=== PATIENT | male | born 1985 | race American Indian/Alaskan Native ===

== ENCOUNTER 2016-04-29 16:42 | Inpatient (IN) | payer OTHER ==
--- NOTE | 2016-04-29 18:12 | Emergency Department Report ---
Chief Complaint: Pain General Stated Complaint: GROIN PAIN Time Seen by Provider: 04/29/16 18:11 - HPI History of Present Illness: This is a 30-year-old obese patient who is here reported bilateral groin pain. Patient said it started early this morning. He said he did a lot of walking and exercising yesterday and he thinks that maybe was coming from. Denies any painful urination. Denies any testicular pain. Denies any abdominal pain. Denies any nausea vomiting or fever or chills. He said he is worried because he has a history of pain in and is hip. Denies any history of hernia. - ROS Review of Systems: All systems are negative unless stated in HPI above. - Exam Vital Signs: Vital Signs 04/29/16 17:01 Temperature 98.4 F Pulse Rate 60 Respiratory 20 Rate Blood Pressure 142/104 O2 Sat by Pulse 99 Oximetry Physical Exam: General: This is a 30-year-old obese male. He is in no acute distress. Abdomen/pelvis: Tender to palpate bilateral groin. No obvious mass seen or felt. No erythema. Abdomen nontender to palpate in all quadrants without any CVA tenderness. Normal bowel sounds. Male : Scrotum nontender to palpate, no erythema or swelling noted. MSE screening note: Focused history and physical exam performed. Due to findings the following was ordered:see mdm ED Medical Decision Making - Medical Decision Making Medical decision making: Patient seen by provider in triage area. Appropriate protocol activated and patient to main ED to be seen by physician. ED Disposition for MSE Condition: Stable
[2016-04-29 19:15] LABS: Bacteria,Urine 1+ /HPF (Negative); Bilirubin,Urine NEG (Negative); Blood,Urine LG (Negative); Ketones,Urine TR mg/dL (Negative); Leukocyte Esterase,Urine NEG (Negative); Mucus,Urine 3+ /HPF; Nitrite,Urine NEG (Negative); Urobilinogen,Urine < 2.0 mg/dL (<2.0); WBC,Urine < 1.0 /HPF (0.0-6.0)
--- NOTE | 2016-04-29 22:58 | Emergency Department Report ---
ED General Adult HPI - General Chief complaint: Pain General Stated complaint: GROIN PAIN Time Seen by Provider: 04/29/16 18:23 Source: patient Mode of arrival: Ambulatory Limitations: No Limitations - History of Present Illness Initial comments: 30-year-old male comes in for having groin pain that started this morning. Patient reports that the pain is increased as the day goes by. 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 He reports that the pain is constant sharp. Nothing makes it better lying down and movement makes it worse. Medical history of a left hip surgery report about 15 years ago he had hip popped out while playing ball. He reports that he had a pin placed. He also complains of bilateral bicep pain when he woke up this morning to his tried icy hot without any resolution. - Related Data Allergies Allergy/AdvReac Type Severity Reaction Status Date / Time No Known Allergies Allergy Unverified 04/29/16 17:01 ED Review of Systems ROS: Stated complaint: GROIN PAIN Other details as noted in HPI Constitutional: denies: chills, fever Genitourinary: other (bilateral groin pain). denies: urgency, dysuria, frequency, hematuria Musculoskeletal: other (bilateral bicep pain) ED Physical Exam - General Limitations: No Limitations General appearance: alert - Head Head exam: Present: atraumatic, normocephalic - ENT ENT exam: Present: normal exam, mucous membranes moist - Respiratory Respiratory exam: Present: normal lung sounds bilaterally - Cardiovascular Cardiovascular Exam: Present: regular rate, normal rhythm, normal heart sounds - GI/Abdominal GI/Abdominal exam: Present: soft. Absent: distended, tenderness - exam: Present: normal inspection, circumcision, other (bilateral groin tenderness, ). Absent: testicular tenderness, scrotal swelling - Extremities Exam Extremities exam: Absent: pedal edema, joint swelling, calf tenderness - Back Exam Back exam: Present: normal inspection. Absent: CVA tenderness (R), CVA tenderness (L) - Neurological Exam Neurological exam: Present: alert, altered, oriented X3 ED Course Vital Signs 04/29/16 17:01 Temperature 98.4 F Pulse Rate 60 Respiratory 20 Rate Blood Pressure 142/104 O2 Sat by Pulse 99 Oximetry ED Medical Decision Making - Lab Data Result diagrams: 04/29/16 23:12 04/29/16 23:12 - Medical Decision Making Patient been evaluated with his provider. Review of his urinalysis shows large amount of blood as well as high levels of protein. We will go ahead and order a CT of the abdomen and pelvis without contrast. As well as a CBC BMP and CK. We'll give patient ice for his biceps pain. Discussed with Dr. Gonzáles findings of his CK of [phone],[id number]. We will give patient 2 L of normal saline and we will admit the patient. Patient failed to disclose that he has started working out recently. Until I asked after received his CK results. Discussed with patient he verbalized understanding. - Differential Diagnosis kidney stones, rhabdomyolysis, Critical care attestation.: If time is entered above; I have spent that time in minutes in the direct care of this critically ill patient, excluding procedure time. ED Disposition Clinical Impression: Rhabdomyolysis Qualifiers: Rhabdomyolysis type: non-traumatic Qualified Code(s): M62.82 - Rhabdomyolysis Disposition: OP ADMITTED IP TO THIS HOSP Is pt being admited?: Yes Does the pt Need Aspirin: No
[2016-04-29 23:26] LABS: Hematocrit 41.7 % (35.5-45.6); Hemoglobin 13.5 gm/dl (11.8-15.2); Mean Corpuscular HGB Conc 32 % (32-34); Mean Corpuscular Hemoglobin 28 pg (28-32); Mean Corpuscular Volume 86 fl (84-94); Platelet Count 317 K/mm3 (140-440); Red Blood Count 4.85 M/mm3 (3.65-5.03); Red Cell Distribution Width 17.6 % (13.2-15.2); White Blood Count 8.1 K/mm3 (4.5-11.0)
[2016-04-29 23:45] LABS: BUN/Creatinine Ratio 11.11; Blood Urea Nitrogen 10 mg/dL (9-20); Calcium 9.4 mg/dL (8.4-10.2); Carbon Dioxide 26 mmol/L (22-30); Chloride 100.4 mmol/L (98-107); Glucose 88 mg/dL (75-100); Potassium 4.2 mmol/L (3.6-5.0); Sodium 140 mmol/L (137-145)
[2016-04-29 23:52] LABS: Anion Gap 18 mmol/L
[2016-04-30 00:05] LABS: Creatine Kinase 43727 units/L (55-170)
[2016-04-30] MEDS ORDERED: NACL 0.9% 1000 ML IV ONE (00:20)
--- NOTE | 2016-04-30 00:24 | Cat Scan Report ---
FINAL REPORT PROCEDURE: CT ABDOMEN PELVIS WO CON TECHNIQUE: Computerized axial tomography of the abdomen and pelvis was performed without intravenous contrast. This study is performed without intravascular contrast material and its sensitivity for abdominal and pelvic pathology, including neoplasms, inflammation, abscess, free fluid, thrombosis, arterial dissection and infarction, is reduced compared with a contrast enhanced study. HISTORY: Abdominal pain and groin pain and hematuria. Bilateral testicular pain. COMPARISON: No prior studies are available for comparison. FINDINGS: Visualized lower thorax: No significant abnormality. Liver: Normal size and attenuation. Spleen: There is a small accessory spleen inferior to the main spleen. The main spleen appears unremarkable otherwise for noncontrast study.. Gallbladder and biliary system: Normal. Pancreas: Normal. Adrenals: Normal. Kidneys: The kidneys appear unremarkable for noncontrast study. There is no CT evidence of renal or ureteral stone or hydronephrosis.. GI tract: Bowel appears unremarkable when considering lack of oral contrast. The appendix is seen and appears normal. There is a moderate amount of stool throughout a moderately tortuous colon.. Lymph nodes and mesentery: Normal. Vasculature: Normal. Bladder: Normal. Reproductive organs: Normal. Peritoneum: No free fluid. Musculoskeletal structures: A metallic pin is noted in the left femoral neck.. Other: None. IMPRESSION: 1. There is no CT evidence of distinct acute or significant finding in the abdomen or pelvis on this noncontrast scan. There is no CT finding to explain groin pain or hematuria. 2. There is a metallic pin in left femoral neck. 3. If symptoms remain unexplained or there is continued concern for abdomen or pelvic abnormality, a follow-up CT scan using both oral and IV contrast would be recommended only if clinically indicated.
--- NOTE | 2016-04-30 01:09 | History and Physical Report ---
History of Present Illness Date of examination: 04/30/16 History of present illness: 30-year-old man with no medical problems comes emergency room with complaints of bilateral groin pain. He describes the pain as sharp, constant that started this morning, intensity8/10, no radiation any cannot identify exacerbating or relieving factors. In the emergency room he was found to have rhabdomyolysis for which she is being admitted. He denies trauma to the groin area Patient denies chest pain, palpitation, shortness of breath, cough, abdominal pain, hematochezia, dysuria, frequency, focal weakness, dysarthria, fever chills , polydipsia polyuria, hot or cold intolerance, easy bruisability, or rash or bleeding from mucosal membrane, rhinorrhea, epistaxis, earache, tinnitus, blurry vision, eye discharge, anxiety, depression. Other review of systems negative PAST SURGICAL HISTORY: Left hip surgery SOCIAL HISTORY: Denies alcohol, tobacco, drugs FAMILY HISTORY: Hypertension Medications and Allergies Allergies Allergy/AdvReac Type Severity Reaction Status Date / Time No Known Allergies Allergy Unverified 04/29/16 17:01 Home Medications Medication Instructions Recorded Confirmed Last Taken Type No Known Home Medications [No 04/30/16 04/30/16 Unknown History Reported Home Medications] Active Meds: Active Medications Sodium Chloride (Nacl 0.9% 1000 Ml) 1,000 mls @ 150 mls/hr IV DIRECT JAGJIT Exam - Physical Exam Narrative exam: Gen. appearance: Patient lying in bed, no apparent distress HEENT: Normocephalic, atraumatic, pupils equally round and reactive to light, extraocular movement intact, and no sclericterus,. No JVD or thyromegaly or nodule,neck supple, no carotid bruit ,mucous membranes moist, no exudate or erythema Heart: S1, S2, regular rate and rhythm Lungs: Clear to auscultation bilaterally, breathing comfortable Abdomen: Positive bowel sounds, nontender, nondistended, no organomegaly Extremity: Tender in the bilateral groin, No edema, cyanosis, clubbing Skin: No rash, nodules, warm, dry Neuro: Oriented 3, cranial nerves II-12 intact, speech is fluent, motor and sensory intact - Constitutional Vitals: Temp Pulse Resp BP Pulse Ox 98.4 F 60 20 142/104 99 04/29/16 17:01 04/29/16 17:01 04/29/16 17:01 04/29/16 17:01 04/29/16 17:01 Results - Labs CBC & Chem 7: 05/01/16 04:54 05/01/16 04:54 Labs: Abnormal lab results 04/29/16 04/29/16 04/29/16 Range/Units 18:40 23:12 23:12 RDW 17.6 H (13.2-15.2) % Total Creatine Kinase 26866 H (55-170) units/L Ur Specific Jansen 1.039 H (1.003-1.030) - Imaging and Cardiology CT scan - abdomen: report reviewed CT scan - pelvis: report reviewed Assessment and Plan Rhabdomyolysis Groin pain, evaluate for hernia Admits medicine Start aggressive IV fluid, consult surgery Start IV morphine, DVT prophylaxis
--- NOTE | 2016-04-30 02:00 | Admit Criteria Form ---
[id number] Admission to Inpatient Care (Place 'X' for any and all applicable criteria): Hospital admission is needed for appropriate care of the patient because of ANY ONE of the following: [ ]I. Fracture, dislocation, or other musculoskeletal injury requiring inpatient care(medical) as indicated by ANY ONE of the following(4)(5)(6)(7) [ ]a) Vertebral fracture requiring observation for instability or neurologic compromise (8) [ ]b) Compartment syndrome (proven or cannot be ruled out during observation level of care) (9) [ ]c) Limb-threatening injury [ ]d) Major injury requiring inpatient stabilization such as traction initiation or external fixation before internal fixation or closure of complex or open fracture [ ]e) Major injury requiring inpatient treatment after emergency or observation level care (as appropriate) [ ]f) Severe pain requiring acute inpatient management [ ]II. Newly diagnosed or suspected bone, joint, or orthopedic device infection (e.g., osteomyelitis, septic arthritis) needing ANY ONE of the following(1)(2)(3) [ ]a) IV antibiotics that cannot be initiated in other than inpatient setting (e.g., patient too unstable or home infusion not available) [ ]b) Device removal or replacement [ ]c) Bone or soft tissue debridement [ ]d) Joint drainage (drain placement or repetitive aspirations) [ ]III. Severe rheumatologic disease (e.g., systemic lupus erythematosus, rheumatoid arthritis) with complications or comorbidities (Also use Optimal Recovery Care Criteria or General Recovery Criteria as appropriate on the basis of predominant condition), including ANY ONE of the following(10 )(11)(12)(13) [ ]a) Severe infection (e.g., PRIMARY CARE SALES REPRESENTATIVE infection, sepsis) (14) [ ]b) Respiratory complications, including ANY ONE of the following: [ ]i) Pleural effusion with respiratory compromise [ ]ii) Pulmonary hypertension with congestive failure [ ]iii) Respiratory failure [ ]iv) Pulmonary hemorrhage (15) [ ]c) Hematologic disease, including ANY ONE of the following: [ ]i) Coagulopathy with bleeding [ ]ii) Thrombosis with hypercoagulable state [ ]iii) Thrombotic thrombocytopenic purpura [ ]d) Cerebritis with seizures, psychosis, or other severe abnormalities [ ]e) Vertebral destruction with monitoring needed for cervical myelopathy& possible respiratory compromise [ ]f) Exacerbation that requires inpatient treatment (e.g., intravenous immunosuppression) (16) [ ]g) Acute renal failure [ ]IV. Severe vasculitis with complications or comorbidities (Also use Optimal Recovery Care Criteria or General Recovery Criteria as appropriate on the basis of predominant condition), including ANY ONE of the following(11)(12)(17)(18)(19)(20) [ ]a) PRIMARY CARE SALES REPRESENTATIVE vasculitis with seizures, psychosis, or other severe abnormalities (22) [ ]b) Renal failure (16) [ ]c) Pulmonary hemorrhage (15) [ ]d) Cerebral infarction [ ]e) Gastrointestinal ischemia [ ]f) Gangrene or threatened amputation [ ]g) Exacerbation that requires inpatient treatment (e.g., intravenous immunosuppression) (19)(21) [ ]V. Severe myopathy as indicated by ANY ONE of the following (28)(29) [ ]a) New onset of airway compromise or inability to swallow [ ]b) Respiratory deterioration with observation needed for impending respiratory failure [ ]c) Exacerbation that requires inpatient treatment (e.g., intravenous immunosuppression) [ ]. Severe gout (crystal arthropathy) as indicated by ANY ONE of the following (23)(24) [ ]a) Severe pain requiring acute inpatient management [ ]b) Exacerbation that requires inpatient treatment (e.g., intravenous treatment) [ X]VII.Rhabdomyolysis and ANY ONE of the following (25)(26)(27) [ ]a) Acute renal failure [X ]b) Need for intravenous hydration after emergency or observation level care (as appropriate) [ ]c) Inability to maintain oral hydration [ ]d) Change in mental status [ ]e) Electrolyte abnormality that remains after emergency or observation level care (as appropriate) [ ]VIII Post amputation complication, as indicated by ANY ONE of the following [ ]a) Infection [ ]b) Dehiscence [ ]c) Myodesis failure [ ]IX. Severe pain requiring acute inpatient management as indicated by ALL of the following (30)(31)(32) [ ]a) Continuous or frequent (e.g., every 2 to 4 hrs) parenteral analgesics required [A] [ ]b) Rapid improvement expected from treatment or acute intervention ( e.g., surgery, anesthesia procedure[B] [ ]X. Musculoskeletal Disease and ALL of the following: [ ]a) Symptom or finding for which emergency and observation care have failed or are not considered appropriate (Use General Criteria: Observation Care as appropriate) [ ]b) Presence of ANY ONE of the following [ ]i) A General Admission Criteria [ ]ii) A Pediatric General Admission Criteria The original [facility] content created by [facility] has been revised. The portions of the content which have been revised are identified through the use of italic text or in bold, and [facility] (formerly [facility]3] has neither reviewed nor approved the modified material. All other unmodified content is copyright [facility]. Please see references footnoted in the original [facility] edition 2016 Admission Criteria Met: Yes
[2016-04-30] MEDS ORDERED: DULCOLAX PR PRN (03:27)
[2016-04-30] MEDS ORDERED: ZOFRAN IV PRN (03:27)
[2016-04-30] MEDS ORDERED: TYLENOL PO PRN (03:27)
[2016-04-30] MEDS ORDERED: MILK OF MAGNESIA PO PRN (03:27)
[2016-04-30] MEDS: NACL 0.9% 1000 ML 1,000 ML IV SCH ×3 (03:44→18:13)
[2016-04-30] MEDS: MORPHINE IV PRN ×2 (04:18→15:59)
[2016-04-30] MEDS: LOVENOX SUB-Q SCH (09:24)
[2016-05-01] MEDS: NACL 0.9% 1000 ML 1,000 ML IV SCH (00:14)
--- NOTE | 2016-05-01 01:48 | Consultation ---
HISTORY OF PRESENT ILLNESS: This man is a 30-year-old black male. He is a little bit overweight. He came last night because of severe pain that he developed in the left inguinal area. He had a walk and this precipitated this problem. He never had this before. He is a healthy young man otherwise. He denied any trauma to the area and he denied any numbness except for him having a walk. The patient does not smoke nor does he drink alcohol. He never been in the hospital in the past except for a surgery that could be related to this problem, which they put a bernie on his left hip, this was about 15 years ago. He told me that this precipitated because of dislocation of the hip every now and then. ALLERGIC REACTIONS: Denied. MEDICATIONS: None. PHYSICAL EXAMINATION: GENERAL: A well preserved, obese black male who is in no distress. He told me that the pain is less, but still existing in the left upper medial thigh area. HEAD AND NECK: Negative. Neck is supple. CHEST: Essentially clear. HEART: Sound normal to me. ABDOMEN: Protuberant, soft, benign. EXTREMITIES: There is an area of thickening in the medial superior aspect of the left thigh may be about 10 x 4 cm with severe tenderness in the area. I could feel the pulses easily all the way down to the dorsalis pedis. The patient is able to move his extremity on the left side, however, with some difficulty, because of the pain and tenderness in the area. NEUROLOGIC: Physiologic. IMPRESSION: Left-sided upper medial thigh pain on the left side, probably needs to be checked by orthopaedic surgery to see what happened to the bernie and/or the plate and the screws that he had. I had a lengthy talk with the man as to need for just observation. We are going to have orthopedic surgery to see him and go from there. JOB# [id number] EVAN/DARCI
[2016-05-01 05:39] LABS: Basophils % (Auto) 0.5 % (0.0-1.8); Eosinophils % (Auto) 2.5 % (0.0-4.3); Hematocrit 36.8 % (35.5-45.6); Hemoglobin 11.9 gm/dl (11.8-15.2); Mean Corpuscular HGB Conc 32 % (32-34); Mean Corpuscular Hemoglobin 28 pg (28-32); Mean Corpuscular Volume 85 fl (84-94); Platelet Count 257 K/mm3 (140-440); Red Blood Count 4.32 M/mm3 (3.65-5.03); Red Cell Distribution Width 17.5 % (13.2-15.2); White Blood Count 5.2 K/mm3 (4.5-11.0)
[2016-05-01 05:49] LABS: BUN/Creatinine Ratio 8.57; Blood Urea Nitrogen 6 mg/dL (9-20); Calcium 8.4 mg/dL (8.4-10.2); Carbon Dioxide 26 mmol/L (22-30); Chloride 105.8 mmol/L (98-107); Glucose 90 mg/dL (75-100); Potassium 4.3 mmol/L (3.6-5.0); Sodium 143 mmol/L (137-145)
[2016-05-01 05:50] LABS: Anion Gap 16 mmol/L
--- NOTE | 2016-05-01 08:37 | XRay Report ---
LEFT HIP, ONE VIEW History: Left hip pain, left groin pain. Findings: Single view of the proximal left femur including most of the left hip is provided. A femoral neck screw is in position. There is no evidence for loosening or infection. Otherwise, the proximal left femur is unremarkable. Normal articulation at the left hip. Impression: No abnormality identified.
--- NOTE | 2016-05-01 09:09 | XRay Report ---
LEFT TIBIA AND FIBULA, 2 VIEWS: HISTORY: Pain. FINDINGS: Chronic, healed fracture of the distal shaft of the left fibula is noted. No evidence for acute fracture, bone lesion or significant joint pathology. The soft tissues are unremarkable. IMPRESSION: No acute process. Apparent chronic, healed fracture of the [id number] left fibula. Please correlate with the patient's history.
[2016-05-01] MEDS: LOVENOX SUB-Q SCH (09:25)
[2016-05-01] MEDS: MORPHINE IV PRN ×2 (09:30→23:19)
--- NOTE | 2016-05-01 11:40 | Progress Note ---
Assessment and Plan - Patient Problems (1) Rhabdomyolysis Current Visit: Yes Status: Acute Qualifiers: Rhabdomyolysis type: non-traumatic Qualified Code(s): M62.82 - Rhabdomyolysis Plan to address problem: IVF, monitor UOP q shift, bicarbonate drip, CK in AM. (2) Obesity (BMI 30-39.9) Current Visit: Yes Status: Acute Plan to address problem: Pt counseled (3) DVT prophylaxis Current Visit: Yes Status: Acute History Interval history: Pt resting in bed, Pt denies leg pain, cp, palpitations, NVD, Hematuria, No reported nursing events. Hospitalist Physical - Constitutional Vitals: Temp Pulse Resp BP Pulse Ox 98.1 F 58 L 16 136/80 98 05/01/16 07:39 05/01/16 07:39 05/01/16 07:39 05/01/16 07:39 05/01/16 07:39 General appearance: Present: no acute distress, obese - EENT Eyes: Present: PERRL, EOM intact ENT: hearing intact - Neck Neck: Present: supple - Respiratory Respiratory: bilateral: CTA - Cardiovascular Rhythm: regular Heart Sounds: Present: S1 & S2 - Extremities Extremities: no ischemia Peripheral Pulses: within normal limits - Abdominal General gastrointestinal: soft, non-tender, non-distended - Integumentary Integumentary: Present: clear, dry - Psychiatric Psychiatric: appropriate mood/affect, cooperative - Neurologic Neurologic: CNII-XII intact Results - Labs CBC & Chem 7: 05/01/16 04:54 05/01/16 04:54 Labs: Laboratory Last Values WBC 5.2 K/mm3 (4.5-11.0) 05/01/16 04:54 RBC 4.32 M/mm3 (3.65-5.03) 05/01/16 04:54 Hgb 11.9 gm/dl (11.8-15.2) 05/01/16 04:54 Hct 36.8 % (35.5-45.6) 05/01/16 04:54 MCV 85 fl (84-94) 05/01/16 04:54 MCH 28 pg (28-32) 05/01/16 04:54 MCHC 32 % (32-34) 05/01/16 04:54 RDW 17.5 % (13.2-15.2) H 05/01/16 04:54 Plt Count 257 K/mm3 (140-440) 05/01/16 04:54 Lymph % (Auto) 38.8 % (13.4-35.0) H 05/01/16 04:54 [place] % (Auto) 6.6 % (0.0-7.3) 05/01/16 04:54 Eos % (Auto) 2.5 % (0.0-4.3) 05/01/16 04:54 Baso % (Auto) 0.5 % (0.0-1.8) 05/01/16 04:54 Lymph # 2.0 K/mm3 (1.2-5.4) 05/01/16 04:54 [place] # 0.3 K/mm3 (0.0-0.8) 05/01/16 04:54 Eos # 0.1 K/mm3 (0.0-0.4) 05/01/16 04:54 Baso # 0.0 K/mm3 (0.0-0.1) 05/01/16 04:54 Seg Neutrophils % 51.6 % (40.0-70.0) 05/01/16 04:54 Seg Neutrophils # 2.7 K/mm3 (1.8-7.7) 05/01/16 04:54 Sodium 143 mmol/L (137-145) 05/01/16 04:54 Potassium 4.3 mmol/L (3.6-5.0) 05/01/16 04:54 Chloride 105.8 mmol/L (98-107) 05/01/16 04:54 Carbon Dioxide 26 mmol/L (22-30) 05/01/16 04:54 Anion Gap 16 mmol/L 05/01/16 04:54 BUN 6 mg/dL (9-20) L 05/01/16 04:54 Creatinine 0.7 mg/dL (0.8-1.5) L 05/01/16 04:54 Estimated GFR > 60 ml/min 05/01/16 04:54 BUN/Creatinine Ratio 8.57 % 05/01/16 04:54 Glucose 90 mg/dL (75-100) 05/01/16 04:54 Calcium 8.4 mg/dL (8.4-10.2) 05/01/16 04:54 Total Creatine Kinase 54018 units/L (55-170) H 05/01/16 04:54 Urine Color Dania (Yellow) 04/29/16 18:40 Urine Turbidity Clear (Clear) 04/29/16 18:40 Urine pH 5.0 (5.0-7.0) 04/29/16 18:40 Ur Specific Joanna 1.039 (1.003-1.030) H 04/29/16 18:40 Urine Protein 100 mg/dl mg/dL (Negative) 04/29/16 18:40 Urine Glucose (UA) Neg mg/dL (Negative) 04/29/16 18:40 Urine Ketones Tr mg/dL (Negative) 04/29/16 18:40 Urine Blood Lg (Negative) 04/29/16 18:40 Urine Nitrite Neg (Negative) 04/29/16 18:40 Urine Bilirubin Neg (Negative) 04/29/16 18:40 Urine Urobilinogen < 2.0 mg/dL (<2.0) 04/29/16 18:40 Ur Leukocyte Esterase Neg (Negative) 04/29/16 18:40 Urine WBC (Auto) < 1.0 /HPF (0.0-6.0) 04/29/16 18:40 Urine RBC (Auto) 9.0 /HPF (0.0-6.0) 04/29/16 18:40 U Epithel Cells (Auto) 1.0 /HPF (0-13.0) 04/29/16 18:40 Urine Bacteria (Auto) 1+ /HPF (Negative) 04/29/16 18:40 Urine Mucus 3+ /HPF 04/29/16 18:40
[2016-05-01] MEDS: SODIUM BICARBONATE 150 MEQ in D5W 1,000 ML IV SCH (15:02)
--- NOTE | 2016-05-02 07:13 | Progress Note ---
Subjective Patient Reports: Positive: feels better, still having pain Narrative: hip and leg xray normal , pain is less , no general surgical problem , indicated to Pt to be on bed rest , worm pad to see me in 10 days ,creatine Kinase still high , Objective Vital Signs - 12hr 05/01/16 05/01/16 05/01/16 22:00 23:19 23:49 Temperature Pulse Rate [ Right Radial] Respiratory 18 18 18 Rate Respiratory 18 Rate [Pelvis] Blood Pressure [Right Arm] O2 Sat by Pulse Oximetry 05/02/16 00:00 Temperature 98.7 F Pulse Rate [ 58 L Right Radial] Respiratory 20 Rate Respiratory Rate [Pelvis] Blood Pressure 134/79 [Right Arm] O2 Sat by Pulse 96 Oximetry - Labs 05/01/16 04:54 05/01/16 04:54
[2016-05-02] MEDS: LOVENOX SUB-Q SCH (09:32)
[2016-05-02] MEDS: NACL 0.45% 1000 ML 1,000 ML IV SCH (16:39)
[2016-05-02] MEDS: SODIUM BICARBONATE 150 MEQ in D5W 1,000 ML IV SCH (22:42)
[2016-05-03] MEDS: NACL 0.45% 1000 ML 1,000 ML IV SCH ×3 (03:09→20:08)
--- NOTE | 2016-05-03 07:34 | Progress Note ---
Assessment and Plan - Patient Problems (1) Rhabdomyolysis Current Visit: Yes Status: Acute Qualifiers: Rhabdomyolysis type: non-traumatic Qualified Code(s): M62.82 - Rhabdomyolysis Plan to address problem: IVF, monitor UOP q shift, bicarbonate drip, CK in AM. Increase IVF (2) Obesity (BMI 30-39.9) Current Visit: Yes Status: Acute Plan to address problem: Pt counseled (3) DVT prophylaxis Current Visit: Yes Status: Acute History Interval history: Pt resting in bed, Pt denies leg pain, cp, palpitations, NVD, Hematuria, No reported nursing events. Pt stable overnight. Hospitalist Physical - Constitutional Vitals: Temp Pulse Resp BP Pulse Ox 98.6 F 65 18 132/81 98 05/02/16 23:51 05/02/16 23:51 05/02/16 23:51 05/02/16 23:51 05/02/16 23:51 General appearance: Present: no acute distress, obese - EENT Eyes: Present: PERRL ENT: hearing intact - Neck Neck: Present: supple - Respiratory Respiratory effort: normal Respiratory: bilateral: CTA - Cardiovascular Rhythm: regular Heart Sounds: Present: S1 & S2 - Extremities Extremities: no ischemia Peripheral Pulses: within normal limits - Abdominal General gastrointestinal: soft, non-tender, non-distended - Integumentary Integumentary: Present: clear, dry - Psychiatric Psychiatric: appropriate mood/affect, cooperative - Neurologic Neurologic: CNII-XII intact Results - Labs CBC & Chem 7: 05/01/16 04:54 05/01/16 04:54 Labs: Laboratory Last Values WBC 5.2 K/mm3 (4.5-11.0) 05/01/16 04:54 RBC 4.32 M/mm3 (3.65-5.03) 05/01/16 04:54 Hgb 11.9 gm/dl (11.8-15.2) 05/01/16 04:54 Hct 36.8 % (35.5-45.6) 05/01/16 04:54 MCV 85 fl (84-94) 05/01/16 04:54 MCH 28 pg (28-32) 05/01/16 04:54 MCHC 32 % (32-34) 05/01/16 04:54 RDW 17.5 % (13.2-15.2) H 05/01/16 04:54 Plt Count 257 K/mm3 (140-440) 05/01/16 04:54 Lymph % (Auto) 38.8 % (13.4-35.0) H 05/01/16 04:54 [place] % (Auto) 6.6 % (0.0-7.3) 05/01/16 04:54 Eos % (Auto) 2.5 % (0.0-4.3) 05/01/16 04:54 Baso % (Auto) 0.5 % (0.0-1.8) 05/01/16 04:54 Lymph # 2.0 K/mm3 (1.2-5.4) 05/01/16 04:54 [place] # 0.3 K/mm3 (0.0-0.8) 05/01/16 04:54 Eos # 0.1 K/mm3 (0.0-0.4) 05/01/16 04:54 Baso # 0.0 K/mm3 (0.0-0.1) 05/01/16 04:54 Seg Neutrophils % 51.6 % (40.0-70.0) 05/01/16 04:54 Seg Neutrophils # 2.7 K/mm3 (1.8-7.7) 05/01/16 04:54 Sodium 143 mmol/L (137-145) 05/01/16 04:54 Potassium 4.3 mmol/L (3.6-5.0) 05/01/16 04:54 Chloride 105.8 mmol/L (98-107) 05/01/16 04:54 Carbon Dioxide 26 mmol/L (22-30) 05/01/16 04:54 Anion Gap 16 mmol/L 05/01/16 04:54 BUN 6 mg/dL (9-20) L 05/01/16 04:54 Creatinine 0.7 mg/dL (0.8-1.5) L 05/01/16 04:54 Estimated GFR > 60 ml/min 05/01/16 04:54 BUN/Creatinine Ratio 8.57 % 05/01/16 04:54 Glucose 90 mg/dL (75-100) 05/01/16 04:54 Calcium 8.4 mg/dL (8.4-10.2) 05/01/16 04:54 Total Creatine Kinase 18457 units/L (55-170) H 05/02/16 13:16 Urine Color Dania (Yellow) 04/29/16 18:40 Urine Turbidity Clear (Clear) 04/29/16 18:40 Urine pH 5.0 (5.0-7.0) 04/29/16 18:40 Ur Specific [place] 1.039 (1.003-1.030) H 04/29/16 18:40 Urine Protein 100 mg/dl mg/dL (Negative) 04/29/16 18:40 Urine Glucose (UA) Neg mg/dL (Negative) 04/29/16 18:40 Urine Ketones Tr mg/dL (Negative) 04/29/16 18:40 Urine Blood Lg (Negative) 04/29/16 18:40 Urine Nitrite Neg (Negative) 04/29/16 18:40 Urine Bilirubin Neg (Negative) 04/29/16 18:40 Urine Urobilinogen < 2.0 mg/dL (<2.0) 04/29/16 18:40 Ur Leukocyte Esterase Neg (Negative) 04/29/16 18:40 Urine WBC (Auto) < 1.0 /HPF (0.0-6.0) 04/29/16 18:40 Urine RBC (Auto) 9.0 /HPF (0.0-6.0) 04/29/16 18:40 U Epithel Cells (Auto) 1.0 /HPF (0-13.0) 04/29/16 18:40 Urine Bacteria (Auto) 1+ /HPF (Negative) 04/29/16 18:40 Urine Mucus 3+ /HPF 04/29/16 18:40
[2016-05-03] MEDS: LOVENOX SUB-Q SCH (11:20)
--- NOTE | 2016-05-03 18:38 | Progress Note ---
Assessment and Plan - Patient Problems (1) Rhabdomyolysis Current Visit: Yes Status: Acute Qualifiers: Rhabdomyolysis type: non-traumatic Qualified Code(s): M62.82 - Rhabdomyolysis Plan to address problem: IVF, monitor UOP q shift, bicarbonate drip, CK in AM. Increase IVF (2) Obesity (BMI 30-39.9) Current Visit: Yes Status: Acute Plan to address problem: Pt counseled (3) DVT prophylaxis Current Visit: Yes Status: Acute History Interval history: Pt resting in bed, Pt denies leg pain, cp, palpitations, NVD, Hematuria, No reported nursing events. Pt stable overnight. NO reported nursing events. Pt IVF disconnected at time of exam. Hospitalist Physical - Constitutional Vitals: Temp Pulse Resp BP Pulse Ox 98.6 F 54 L 20 119/80 98 05/03/16 16:10 05/03/16 16:10 05/03/16 16:10 05/03/16 16:10 05/03/16 08:01 General appearance: Present: no acute distress, obese - EENT Eyes: Present: PERRL, EOM intact ENT: hearing intact - Neck Neck: Present: supple - Respiratory Respiratory effort: normal Respiratory: bilateral: CTA - Cardiovascular Rhythm: regular Heart Sounds: Present: S1 & S2 - Extremities Extremities: no ischemia Peripheral Pulses: within normal limits - Abdominal General gastrointestinal: soft, non-tender, non-distended - Integumentary Integumentary: Present: clear, dry - Psychiatric Psychiatric: appropriate mood/affect, cooperative - Neurologic Neurologic: CNII-XII intact Results - Labs CBC & Chem 7: 05/01/16 04:54 05/01/16 04:54 Labs: Laboratory Last Values WBC 5.2 K/mm3 (4.5-11.0) 05/01/16 04:54 RBC 4.32 M/mm3 (3.65-5.03) 05/01/16 04:54 Hgb 11.9 gm/dl (11.8-15.2) 05/01/16 04:54 Hct 36.8 % (35.5-45.6) 05/01/16 04:54 MCV 85 fl (84-94) 05/01/16 04:54 MCH 28 pg (28-32) 05/01/16 04:54 MCHC 32 % (32-34) 05/01/16 04:54 RDW 17.5 % (13.2-15.2) H 05/01/16 04:54 Plt Count 257 K/mm3 (140-440) 05/01/16 04:54 Lymph % (Auto) 38.8 % (13.4-35.0) H 05/01/16 04:54 [place] % (Auto) 6.6 % (0.0-7.3) 05/01/16 04:54 Eos % (Auto) 2.5 % (0.0-4.3) 05/01/16 04:54 Baso % (Auto) 0.5 % (0.0-1.8) 05/01/16 04:54 Lymph # 2.0 K/mm3 (1.2-5.4) 05/01/16 04:54 [place] # 0.3 K/mm3 (0.0-0.8) 05/01/16 04:54 Eos # 0.1 K/mm3 (0.0-0.4) 05/01/16 04:54 Baso # 0.0 K/mm3 (0.0-0.1) 05/01/16 04:54 Seg Neutrophils % 51.6 % (40.0-70.0) 05/01/16 04:54 Seg Neutrophils # 2.7 K/mm3 (1.8-7.7) 05/01/16 04:54 Sodium 143 mmol/L (137-145) 05/01/16 04:54 Potassium 4.3 mmol/L (3.6-5.0) 05/01/16 04:54 Chloride 105.8 mmol/L (98-107) 05/01/16 04:54 Carbon Dioxide 26 mmol/L (22-30) 05/01/16 04:54 Anion Gap 16 mmol/L 05/01/16 04:54 BUN 6 mg/dL (9-20) L 05/01/16 04:54 Creatinine 0.7 mg/dL (0.8-1.5) L 05/01/16 04:54 Estimated GFR > 60 ml/min 05/01/16 04:54 BUN/Creatinine Ratio 8.57 % 05/01/16 04:54 Glucose 90 mg/dL (75-100) 05/01/16 04:54 Calcium 8.4 mg/dL (8.4-10.2) 05/01/16 04:54 Total Creatine Kinase 27617 units/L (55-170) H 05/03/16 07:41 Urine Color Dania (Yellow) 04/29/16 18:40 Urine Turbidity Clear (Clear) 04/29/16 18:40 Urine pH 5.0 (5.0-7.0) 04/29/16 18:40 Ur Specific [place] 1.039 (1.003-1.030) H 04/29/16 18:40 Urine Protein 100 mg/dl mg/dL (Negative) 04/29/16 18:40 Urine Glucose (UA) Neg mg/dL (Negative) 04/29/16 18:40 Urine Ketones Tr mg/dL (Negative) 04/29/16 18:40 Urine Blood Lg (Negative) 04/29/16 18:40 Urine Nitrite Neg (Negative) 04/29/16 18:40 Urine Bilirubin Neg (Negative) 04/29/16 18:40 Urine Urobilinogen < 2.0 mg/dL (<2.0) 04/29/16 18:40 Ur Leukocyte Esterase Neg (Negative) 04/29/16 18:40 Urine WBC (Auto) < 1.0 /HPF (0.0-6.0) 04/29/16 18:40 Urine RBC (Auto) 9.0 /HPF (0.0-6.0) 04/29/16 18:40 U Epithel Cells (Auto) 1.0 /HPF (0-13.0) 04/29/16 18:40 Urine Bacteria (Auto) 1+ /HPF (Negative) 04/29/16 18:40 Urine Mucus 3+ /HPF 04/29/16 18:40
[2016-05-03] MEDS ORDERED: NACL 0.45% 3,000 ML IV SCH (19:00)
[2016-05-04] MEDS: SODIUM BICARBONATE 150 MEQ in D5W 1,000 ML IV SCH (01:35)
[2016-05-04] MEDS: NACL 0.45% 1000 ML 1,000 ML IV SCH ×2 (01:36→06:29)
[2016-05-04] MEDS: LOVENOX SUB-Q SCH (09:21)
[2016-05-05] MEDS: SODIUM BICARBONATE 150 MEQ in D5W 1,000 ML IV SCH (02:36)
--- NOTE | 2016-05-05 05:06 | Progress Note ---
Assessment and Plan - Patient Problems (1) Rhabdomyolysis Current Visit: Yes Status: Acute Qualifiers: Rhabdomyolysis type: non-traumatic Qualified Code(s): M62.82 - Rhabdomyolysis Plan to address problem: IVF, monitor UOP q shift, bicarbonate drip, CK in AM. Increase IVFCK down to 10K today from 40K (2) Obesity (BMI 30-39.9) Current Visit: Yes Status: Acute Plan to address problem: Pt counseled (3) DVT prophylaxis Current Visit: Yes Status: Acute History Interval history: Pt resting in bed, Pt denies leg pain, cp, palpitations, NVD, Hematuria, No reported nursing events. Pt stable overnight. NO reported nursing events. Pt IVF disconnected at time of exam. Hospitalist Physical - Constitutional Vitals: Temp Pulse Resp BP Pulse Ox 98.5 F 61 20 116/73 100 05/04/16 23:24 05/04/16 23:24 05/04/16 23:24 05/04/16 23:24 05/04/16 23:24 General appearance: Present: no acute distress, obese - EENT Eyes: Present: PERRL, EOM intact ENT: hearing intact - Neck Neck: Present: supple - Respiratory Respiratory effort: normal Respiratory: bilateral: CTA - Cardiovascular Rhythm: regular Heart Sounds: Present: S1 & S2 - Extremities Extremities: no ischemia - Abdominal General gastrointestinal: soft, non-tender, non-distended - Integumentary Integumentary: Present: clear, dry - Psychiatric Psychiatric: appropriate mood/affect, cooperative - Neurologic Neurologic: CNII-XII intact Results - Labs CBC & Chem 7: 05/01/16 04:54 05/01/16 04:54 Labs: Laboratory Last Values WBC 5.2 K/mm3 (4.5-11.0) 05/01/16 04:54 RBC 4.32 M/mm3 (3.65-5.03) 05/01/16 04:54 Hgb 11.9 gm/dl (11.8-15.2) 05/01/16 04:54 Hct 36.8 % (35.5-45.6) 05/01/16 04:54 MCV 85 fl (84-94) 05/01/16 04:54 MCH 28 pg (28-32) 05/01/16 04:54 MCHC 32 % (32-34) 05/01/16 04:54 RDW 17.5 % (13.2-15.2) H 05/01/16 04:54 Plt Count 257 K/mm3 (140-440) 05/01/16 04:54 Lymph % (Auto) 38.8 % (13.4-35.0) H 05/01/16 04:54 [place] % (Auto) 6.6 % (0.0-7.3) 05/01/16 04:54 Eos % (Auto) 2.5 % (0.0-4.3) 05/01/16 04:54 Baso % (Auto) 0.5 % (0.0-1.8) 05/01/16 04:54 Lymph # 2.0 K/mm3 (1.2-5.4) 05/01/16 04:54 [place] # 0.3 K/mm3 (0.0-0.8) 05/01/16 04:54 Eos # 0.1 K/mm3 (0.0-0.4) 05/01/16 04:54 Baso # 0.0 K/mm3 (0.0-0.1) 05/01/16 04:54 Seg Neutrophils % 51.6 % (40.0-70.0) 05/01/16 04:54 Seg Neutrophils # 2.7 K/mm3 (1.8-7.7) 05/01/16 04:54 Sodium 143 mmol/L (137-145) 05/01/16 04:54 Potassium 4.3 mmol/L (3.6-5.0) 05/01/16 04:54 Chloride 105.8 mmol/L (98-107) 05/01/16 04:54 Carbon Dioxide 26 mmol/L (22-30) 05/01/16 04:54 Anion Gap 16 mmol/L 05/01/16 04:54 BUN 6 mg/dL (9-20) L 05/01/16 04:54 Creatinine 0.7 mg/dL (0.8-1.5) L 05/01/16 04:54 Estimated GFR > 60 ml/min 05/01/16 04:54 BUN/Creatinine Ratio 8.57 % 05/01/16 04:54 Glucose 90 mg/dL (75-100) 05/01/16 04:54 Calcium 8.4 mg/dL (8.4-10.2) 05/01/16 04:54 Total Creatine Kinase 48020 units/L (55-170) H 05/04/16 05:57 Urine Color [place]ia (Yellow) 04/29/16 18:40 Urine Turbidity Clear (Clear) 04/29/16 18:40 Urine pH 5.0 (5.0-7.0) 04/29/16 18:40 Ur Specific [place] 1.039 (1.003-1.030) H 04/29/16 18:40 Urine Protein 100 mg/dl mg/dL (Negative) 04/29/16 18:40 Urine Glucose (UA) Neg mg/dL (Negative) 04/29/16 18:40 Urine Ketones Tr mg/dL (Negative) 04/29/16 18:40 Urine Blood Lg (Negative) 04/29/16 18:40 Urine Nitrite Neg (Negative) 04/29/16 18:40 Urine Bilirubin Neg (Negative) 04/29/16 18:40 Urine Urobilinogen < 2.0 mg/dL (<2.0) 04/29/16 18:40 Ur Leukocyte Esterase Neg (Negative) 04/29/16 18:40 Urine WBC (Auto) < 1.0 /HPF (0.0-6.0) 04/29/16 18:40 Urine RBC (Auto) 9.0 /HPF (0.0-6.0) 04/29/16 18:40 U Epithel Cells (Auto) 1.0 /HPF (0-13.0) 04/29/16 18:40 Urine Bacteria (Auto) 1+ /HPF (Negative) 04/29/16 18:40 Urine Mucus 3+ /HPF 04/29/16 18:40
[2016-05-05] MEDS: LOVENOX SUB-Q SCH (09:53)
--- NOTE | 2016-05-05 11:59 | Discharge Summary ---
Providers - Providers Date of Admission: 04/30/16 01:18 Date of discharge: 05/05/16 Attending physician: MARILY COON MD Surgery Primary care physician: DEMETRIA WEI MD Hospitalization Reason for admission: Rhabdomyolysis and groin pain Condition: Stable Hospital course: Patient was admitted to the floor for right groin pain rhabdomyolysis he was consulted and doesn't think the patient needs surgery and will evaluate him as an outpatient. Patient was aggressively treated with IV fluid and CKs trended down. Currently patient did have any pain. Patient is stable at the time of discharge. Patient is obese and counselled about weight loss, diet, exercise. Patient advised to follow with primary care physician and surgery. Disposition: DISCHARGED TO HOME OR SELFCARE Time spent for discharge: 31 minutes - Discharge Diagnoses (1) Obesity (BMI 30-39.9) Status: Acute (2) Rhabdomyolysis Status: Acute Qualifiers: Rhabdomyolysis type: non-traumatic Qualified Code(s): M62.82 - Rhabdomyolysis Core Measure Documentation - Palliative Care Palliative Care/ Comfort Measures: Not Applicable - Core Measures Any of the following diagnoses?: none Exam - Physical Exam Narrative exam: Not in cardiopulmonary distress. The patient is obese. Vital signs as documented. Head exam is unremarkable. No scleral icterus . Neck is without jugular venous distension, thyromegaly, or carotid bruits. Lungs are clear to auscultation. Cardiac exam reveals regular rate and Rhythm. First and second heart sounds normal. No murmurs, rubs or gallops. Abdominal exam reveals normal bowel sounds, no masses, no organomegaly and no aortic enlargement. Extremities are nonedematous and both femoral and pedal pulses are normal. [place] [employer] [place]: Alert and oriented 3. No focal weakness. - Constitutional Vitals: Temp Pulse Resp BP Pulse Ox 97.8 F 55 L 14 122/72 100 05/05/16 09:44 05/05/16 09:44 05/05/16 09:44 05/05/16 09:44 05/05/16 09:44 Plan Activity: no restrictions Weight Bearing Status: Full Weight Bearing Diet: low fat, low cholesterol Follow up with: DEMETRIA WEI MD [Primary Care Provider] - 7 Days MARIFER HERNÁNDEZ MD [Staff Physician] - 10 Days
[2016-05-05 13:54] VITALS: BP 116/65
[2016-05-05] MEDS ORDERED: FLUARIX QUAD 2016-2017(36 MOS+) IM ONE (15:00)
== END 2016-05-05 16:49 | disposition home or self-care (01) | DRG 558 ==
LOC: ED 16:42 → 3A 04-30 01:18
PROVIDERS: ADMIT Internal Medicine; ATTEND Internal Medicine
DX: M62.82 Rhabdomyolysis (principal); R10.30 Lower abdominal pain, unspecified; E66.9 Obesity, unspecified; Z68.38 Body mass index [BMI] 38.0-38.9, adult; Z82.49 Family history of ischemic heart disease and other diseases of the circulatory system
CPT/HCPCS: 36415; 74176; 80048; 81001; 82550; 85025; 85027; 90686; 96360; 96361; J1650; J2270; J7030; J7070